=== PATIENT | male | born 1990 | race Caucasian/White ===

== ENCOUNTER 2019-04-20 09:21 | Day surgery (SDC) | payer BC ==
[2019-04-20] MEDS ORDERED: MIDAZOLAM 1 MG/ML 2 ML INJ ×2 (10:51)
[2019-04-20] MEDS ORDERED: FENTAnyl 50 MCG/ML VIAL (10:51)
== END 2019-04-20 11:09 | disposition home or self-care (01) ==
LOC: GIL 09:21
DX: K92.1 Melena (principal); K64.1 Second degree hemorrhoids
CPT/HCPCS: 45378